=== PATIENT | female | born 1945 | race Caucasian/White ===

== ENCOUNTER 2020-12-11 01:25 | Inpatient (IN) | payer MEDICARE ==
[~2020-12-11] VITALS: Ht 165.1 cm; Wt 59.1 kg
[2020-12-11] MEDS ORDERED: HALOPERIDOL 5 MG/ML ONE (01:57)
[2020-12-11] MEDS ORDERED: HALOPERIDOL 5 MG/ML IM ONE (02:00)
--- NOTE | 2020-12-11 02:03 | NUR ---
PHARMACOVIGILANCE SPECIALIST RN: PT CONFUSED, DX OF DEMENTIA AND PROBABLE UTI. PT ATTEMPTED TO PULL OUT IVS AND PULL OFF ALL MONITORING DEVICES. DISCUSSED ATTEMPTING MITTENS AND VERBAL ORDERED OBTAINED.
[2020-12-11] MEDS ORDERED: SODIUM CHLORIDE 0.9% 1,000ML IVBOLUS ONE (02:30)
[2020-12-11 02:36] LABS: PH, VENOUS 7.365 pH (7.320-7.420)
[2020-12-11] MEDS ORDERED: HYDR-3237 PO (02:42)
[2020-12-11] MEDS ORDERED: DONE10TA14 PO (02:42)
[2020-12-11] MEDS ORDERED: INSU100I13 SC (02:42)
[2020-12-11] MEDS ORDERED: METF-734 PO (02:42)
--- NOTE | 2020-12-11 02:43 | NUR ---
PT FROM [facility], PT ACTIVELY SEPTIC FROM UTI AND DKA, GIVEN ROCEPHIN, NS, NS WITH 20 MEQ K (800 ML), 2.5 ML HALDOL, AND 50 MICROGRAM FENTYNAL. GLUCOSE WAS 619, ANION GAP OF 23. RESTING IN RNEY, DAUGHTER AT BEDSIDE AND ABLE TO HELP PATIENT NOT PULL LINES. ANOTHER PIV PLACED IN LEFT AC, MEDICATED WITH 2.5 MG HALDOL AND A LITER OF NS RUNNING.
[2020-12-11 02:50] LABS: ALANINE AMINOTRANSFERASE 16 U/L (12-78); ALBUMIN 1.8 g/dL (3.4-5.0); ANION GAP 11 mmol/L (5-15); CALCIUM 9.3 mg/dL (8.5-10.1); CHLORIDE 105 mmol/L (98-107); CREATININE 1.48 mg/dL (0.55-1.02)
[2020-12-11 02:53] LABS: ALKALINE PHOSPHATASE 186 U/L (45-117); BILIRUBIN,TOTAL 0.4 mg/dL (0.2-1.0); TOTAL PROTEIN 7.5 g/dL (6.4-8.2)
[2020-12-11 02:55] LABS: MEAN CORPUSCULAR HEMOGLOBIN 30.5 pg (27.0-34.8); MEAN CORPUSCULAR HGB CONC 33.9 g/dL (32.4-35.8); MEAN PLATELET VOLUME 8.7 fL (7.4-10.4); PLATELET COUNT 356 x10^3/uL (130-400); RED BLOOD COUNT 4.95 x10^6/uL (3.82-5.3); RED CELL DISTRIBUTION WIDTH 13.3 % (9.6-15.2)
[2020-12-11] MEDS ORDERED: LACTATED RINGERS 1,000 ML IVBOLUS ONE (03:00)
[2020-12-11 03:01] LABS: ACETONE, SERUM Moderate(40mg/dL) (Negative)
[2020-12-11 03:17] LABS: MD YES
[2020-12-11 03:18] LABS: TROPONIN I < 0.015 ng/mL (0.000-0.045)
[2020-12-11 03:20] LABS: BANDS%(MANUAL) 12 % (0-7); LYMPH#(MANUAL) 1.21 x10^3/uL (1-3.4); LYMPHS% (MANUAL) 5 % (22-44); MONOS#(MANUAL) 2.18 x10^3/uL (0.3-2.7); MONOS% (MANUAL) 9 % (2-9); SEG#(MANUAL) 17.91 x10^3/uL (1.8-6.8); SEGS% (MANUAL) 74 % (42-75)
[2020-12-11 03:21] LABS: <PLATELET ESTIMATE> ADEQUATE; <PLT MORPHOLOGY> NORMAL PLT MORPH; <RBC MORPHOLOGY> NORMAL
--- NOTE | 2020-12-11 03:22 | NUR ---
REPORT GIVEN TO DAVID PIEDRA
--- NOTE | 2020-12-11 03:23 | NUR ---
PT CURRENTLY RUNNING LR AND NS BOLUS. ONCE COMPLETE PT TO HAVE RECIEVED 2,800 ML FLUIDS FROM [place] AND HERE.
[2020-12-11] MEDS ORDERED: BISACODYL 10 MG SUPP PR PRN (03:30)
[2020-12-11] MEDS ORDERED: OXYcodone IR 5MG TABLET PO PRN (03:30)
[2020-12-11] MEDS ORDERED: ONDANSETRON 2MG/ML, 2ML IVPush PRN (03:30)
[2020-12-11] MEDS ORDERED: ACETAMINOPHEN 325 MG TABLET PO PRN (03:30)
[2020-12-11] MEDS ORDERED: ONDANSETRON ODT 4 MG PO PRN (03:30)
[2020-12-11] MEDS ORDERED: DOCUSATE 100 MG CAPSULE PO PRN (03:30)
[2020-12-11] MEDS ORDERED: INSULIN GLARGINE 100 UNITS/ML, PEN SQ-INSULIN SCH (03:30)
[2020-12-11] MEDS ORDERED: hydrALAzine 20 MG/ML, 1ML IVPush PRN (03:30)
[2020-12-11] MEDS ORDERED: POLYETHYLENE GLYCOL 17 GM PACKET PO PRN (03:30)
[2020-12-11] MEDS ORDERED: ENOXAPARIN 40 MG/0.4 ML SQ SCH (03:30)
[2020-12-11] MEDS ORDERED: PROMETHAZINE 25 MG/ML, 1ML IM PRN (03:30)
[2020-12-11] MEDS ORDERED: D5%-0.45% NACL 1,000 ML IV SCH (03:30)
--- NOTE | 2020-12-11 03:42 | NUR ---
: ROSALEE OLIVER: [phone] (CELL). hOME: [phone] DAUGHTER: KELVIN LOYDA: [phone] DAUGHTER: ANGY CLARK: [phone] DAUGHTER: GEOFF SHAFFER: [phone]
[2020-12-11 03:53] LABS: FREE T4 (FREE THYROXINE) 1.08 ng/dL (0.76-1.46)
[2020-12-11] MEDS ORDERED: POTASSIUM CHLORIDE 40 MEQ in SODIUM CHLORIDE 0.9% 500 ML IV ONE (04:00)
[2020-12-11 04:18] VITALS: BP 112/69
[2020-12-11] MEDS ORDERED: CEFTRIAXONE PMX 1GM/50ML 50 ML IV SCH (04:30)
[2020-12-11] MEDS: INSULIN GLARGINE 100 UNITS/ML, PEN SQ-INSULIN SCH ×2 (05:10→20:52)
[2020-12-11] MEDS: SODIUM CHLORIDE 0.9% 1,000 ML IV SCH ×2 (05:41→18:52)
[2020-12-11 06:51] VITALS: BP 121/64
[2020-12-11] MEDS: DONEPEZIL 10 MG TABLET PO SCH (08:34)
[2020-12-11] MEDS ORDERED: LORazepam 2 MG/ML, 1ML IVPush ONE (09:00)
[2020-12-11] MEDS: INSULIN LISPRO 100 UNITS/ML, PEN SQ-INSULIN SCH ×4 (09:52→20:53)
[2020-12-11] MEDS ORDERED: ACYCLOVIR 600 MG in SODIUM CHLORIDE 0.9% 100 ML IV SCH (10:30)
[2020-12-11] MEDS ORDERED: [UNRECOGNIZED DRUG - REMARK] MC SCH (11:00)
[2020-12-11] MEDS: RISPERIDONE 1 MG TAB.RAPDIS PO SCH ×2 (12:48→20:53)
[2020-12-11 13:47] LABS: MICROSCOPIC INDICATED
[2020-12-11 14:00] VITALS: BP 124/78
[2020-12-11] MEDS ORDERED: ENOXAPARIN 30 MG/0.3 ML SQ SCH (15:30)
[2020-12-11] MEDS: morphine SULFATE 10 MG/ML, 1ML IVPush PRN (18:48)
[2020-12-11 19:01] VITALS: BP 130/73
[2020-12-11] MEDS: VANCOMYCIN PER PHARMACY MC SCH (20:30)
[2020-12-11] MEDS ORDERED: VALACYCLOVIR 500MG TABLET PO SCH (21:00)
[2020-12-11] MEDS ORDERED: PHARMACOKINETIC CONSULTATION MC ONE (21:00)
[2020-12-11] MEDS ORDERED: PHARMACOKINETIC MONITORING MC PRN (21:00)
[2020-12-11] MEDS ORDERED: VANCOMYCIN 1,400 MG in SODIUM CHLORIDE 0.9% 250 ML IV ONE (21:00)
[2020-12-11] MEDS ORDERED: HALOPERIDOL 5 MG/ML IV PRN (23:00)
[2020-12-12] MEDS: morphine SULFATE 10 MG/ML, 1ML IVPush PRN ×4 (00:25→14:49)
[2020-12-12] MEDS: ACYCLOVIR 600 MG in SODIUM CHLORIDE 0.9% 100 ML IV SCH ×2 (00:25→12:43)
[2020-12-12 07:10] LABS: CHLORIDE 121 mmol/L (98-107)
[2020-12-12 07:16] LABS: ALANINE AMINOTRANSFERASE 21 U/L (12-78); ALBUMIN 1.5 g/dL (3.4-5.0); ALKALINE PHOSPHATASE 151 U/L (45-117); ANION GAP 8 mmol/L (5-15); BILIRUBIN,TOTAL 0.3 mg/dL (0.2-1.0); CALCIUM 8.5 mg/dL (8.5-10.1); CHOL/HDL RATIO 4.1; CHOLESTEROL, TOTAL 106 mg/dL (140-239); HDL CHOL % 25 % (28-40); HDL CHOLESTEROL (DIRECT) 26 mg/dL (40-60); LDL CHOLESTEROL,CALCULATED 62 mg/dL (54-169); LDL/HDL RATIO 2.4 (0.5-3.0); TOTAL PROTEIN 6.2 g/dL (6.4-8.2); TRIGLYCERIDES 92 mg/dL (50-200); VLDL CHOLESTEROL 18 mg/dL (0-25)
[2020-12-12 07:40] LABS: MEAN CORPUSCULAR HEMOGLOBIN 30.5 pg (27.0-34.8); MEAN CORPUSCULAR HGB CONC 33.4 g/dL (32.4-35.8); MEAN PLATELET VOLUME 8.8 fL (7.4-10.4); PLATELET COUNT 292 x10^3/uL (130-400); RED BLOOD COUNT 4.31 x10^6/uL (3.82-5.3); RED CELL DISTRIBUTION WIDTH 13.4 % (9.6-15.2)
[2020-12-12 07:50] VITALS: BP 139/72
[2020-12-12] MEDS: INSULIN LISPRO 100 UNITS/ML, PEN SQ-INSULIN SCH ×2 (08:11→12:44)
[2020-12-12] MEDS ORDERED: POTASSIUM CHLORIDE 20 MEQ TAB.ER.PRT PO ONE (08:30)
[2020-12-12] MEDS ORDERED: POTASSIUM CHLORIDE 40 MEQ in SODIUM CHLORIDE 0.9% 500 ML IV ONE (08:30)
[2020-12-12] MEDS: DONEPEZIL 10 MG TABLET PO SCH (09:00)
[2020-12-12 09:03] LABS: MD YES
[2020-12-12 09:04] LABS: BAND#(MANUAL) 1.32 x10^3/uL; BANDS%(MANUAL) 7 % (0-7); EOS#(MANUAL) 0.19 x10^3/uL (0.0-0.4); EOS% (MANUAL) 1 % (1-7); LYMPH#(MANUAL) 1.69 x10^3/uL (1-3.4); LYMPHS% (MANUAL) 9 % (22-44); MONOS#(MANUAL) 1.88 x10^3/uL (0.3-2.7); MONOS% (MANUAL) 10 % (2-9); SEG#(MANUAL) 13.72 x10^3/uL (1.8-6.8); SEGS% (MANUAL) 73 % (42-75)
[2020-12-12 09:05] LABS: <PLATELET ESTIMATE> ADEQUATE; <PLT MORPHOLOGY> NORMAL PLT MORPH; <RBC MORPHOLOGY> NORMAL
[2020-12-12] MEDS: RISPERIDONE 1 MG TAB.RAPDIS PO SCH (10:32)
[2020-12-12] MEDS ORDERED: POTASSIUM CHLORIDE 40 MEQ in SODIUM CHLORIDE 0.45% 1,000 ML IV SCH (13:00)
[2020-12-12 13:20] VITALS: BP 103/52
[2020-12-12] MEDS ORDERED: SCOPOLAMINE 1MG PATCH TD PRN (16:00)
[2020-12-12] MEDS ORDERED: ONDANSETRON 2MG/ML, 2ML IVPush PRN (16:00)
[2020-12-12] MEDS ORDERED: ATROPINE OPHTH SOLN 1%, 5ML PO PRN (16:00)
[2020-12-12] MEDS: LORazepam 2 MG/ML, 1ML IVPush PRN ×2 (17:10→22:34)
[2020-12-12] MEDS: DOCUSATE 100 MG CAPSULE PO SCH (19:29)
[2020-12-12] MEDS: VANCOMYCIN PER PHARMACY MC SCH (19:29)
[2020-12-12] MEDS: SENNOSIDES 8.6 MG TABLET PO SCH (19:30)
[2020-12-12] MEDS: SODIUM CHLORIDE FLUSH 10ML SYR IVF SCH (22:00)
[2020-12-12] MEDS ORDERED: VANCOMYCIN 1,200 MG in SODIUM CHLORIDE 0.9% 250 ML IV SCH (22:00)
[2020-12-12] MEDS: MORPHINE 30MG/30ML PCA.SYR IV PRN (23:49)
[2020-12-13] MEDS ORDERED: ENOXAPARIN 40 MG/0.4 ML SQ SCH (06:00)
[2020-12-13] MEDS: SENNOSIDES 8.6 MG TABLET PO SCH ×2 (07:13→21:00)
[2020-12-13] MEDS: DOCUSATE 100 MG CAPSULE PO SCH ×2 (07:13→21:00)
[2020-12-13] MEDS: SODIUM CHLORIDE FLUSH 10ML SYR IVF SCH ×2 (09:00→21:00)
[2020-12-13] MEDS: MORPHINE 30MG/30ML PCA.SYR IV PRN ×3 (13:41→16:37)
[2020-12-14] MEDS: MORPHINE 30MG/30ML PCA.SYR IV PRN ×3 (00:57→16:10)
[2020-12-14] MEDS ORDERED: morphine SULFATE 100 MG in DEXTROSE 5% 90 ML IV PRN (20:00)
== END 2020-12-15 01:30 | disposition expired | DRG 871 ==
LOC: ED 02:20 → EDIP 03:23 → 4WST 03:58 → 5SO 14:02 → 4NW 12-12 22:33
PROVIDERS: ADMIT Internal Medicine; ATTEND Hospitalist
PROC: 0T9B70Z Drainage of Bladder with Drainage Device, Via Natural or Artificial Opening (ICD-10-PCS; principal; 2020-12-11)
DX: A41.9 Sepsis, unspecified organism (principal); G93.41 Metabolic encephalopathy; J96.01 Acute respiratory failure with hypoxia; N17.0 Acute kidney failure with tubular necrosis; E43 Unspecified severe protein-calorie malnutrition; F02.81 Dementia in other diseases classified elsewhere, unspecified severity, with behavioral disturbance; G89.29 Other chronic pain; R65.20 Severe sepsis without septic shock; E87.6 Hypokalemia; Z51.5 Encounter for palliative care; Z20.822 Contact with and (suspected) exposure to COVID-19; Z66 Do not resuscitate; R29.6 Repeated falls; G30.1 Alzheimer's disease with late onset; N30.90 Cystitis, unspecified without hematuria; B96.89 Other specified bacterial agents as the cause of diseases classified elsewhere; B37.9 Candidiasis, unspecified; B02.9 Zoster without complications; E11.65 Type 2 diabetes mellitus with hyperglycemia; Z87.440 Personal history of urinary (tract) infections; Z79.899 Other long term (current) drug therapy; Z68.21 Body mass index [BMI] 21.0-21.9, adult; Z91.040 Latex allergy status; Z79.84 Long term (current) use of oral hypoglycemic drugs
CPT/HCPCS: 36415; 80053; 80061; 81001; 82010; 82803; 82962; 83036; 83605; 83735; 84145; 84439; 84443; 84484; 85025; 87040; 87077; 87086; 93005; 99291; G0378; J0133; J0696; J1650; J2270; J3370; J3480; J1630; J1815; J2060; J7030; J7040; J7050; J7120